=== PATIENT | male | born 1945 | race Caucasian/White ===

== ENCOUNTER 2016-12-06 12:42 | Emergency (ER) | payer MEDICARE, OTHER ==
[~2016-12-06] VITALS: Ht 185.4 cm; Wt 113.0 kg
[2016-12-06] MEDS ORDERED: SODIUM CHLORIDE FLUSH 10 ML SYR IV PRN (12:45)
[2016-12-06] MEDS ORDERED: SODIUM CHLORIDE FLUSH 3 ML SYR IV ONE (12:45)
[2016-12-06] MEDS ORDERED: HYDROmorphone 1 MG/ML (DILAUDID) SYRINGE IV ONE (13:15)
[2016-12-06 13:26] LABS: MEAN CORPUSCULAR VOLUME 96 FL (80-100); PLATELET COUNT 228 10^3uL (150-450); WHITE BLOOD COUNT 11.41 10^3uL (4.0-11.0)
[2016-12-06 13:32] LABS: MEAN CORPUSCULAR HEMOGLOBIN 34.3 PG (26.0-34.0); MEAN CORPUSCULAR HGB CONC 35.6 g/dL (31.0-37.0)
[2016-12-06 13:33] LABS: BAND NEUTROPHILS % 11 % (0-6); EOSINOPHILS % 2 % (0-4); MONOCYTES # 0.2 #; MONOCYTES % 2 % (3-11); RBC MORPH NORMAL (NORMAL); SEGMENTED NEUTROPHILS % 76 % (51-67); TOTAL CELLS COUNTED 100
[2016-12-06 13:34] LABS: CREATINE KINASE 121 U/L (55-170)
[2016-12-06 13:38] LABS: ACETONE SERUM Negative (Negative)
[2016-12-06 13:39] LABS: ALBUMIN 5.2 g/dL (3.4-5.0); ALKALINE PHOSPHATASE 56 U/L (38-126); AMYLASE* 54 U/L (25-115); ANION GAP 22.1 MEQ/L (3-15); BUN/CREATININE RATIO 12 (10-20); CALCULATED IONIZED CALCIUM 3.9 mg/dL (3.8-4.6); LIPASE* 118 U/L (23-300); TOTAL PROTEIN 8.6 g/dL (6.4-8.5)
[2016-12-06 15:43] LABS: ANION GAP 20.4 MEQ/L (3-15)
[2016-12-06] MEDS ORDERED: DIPHENOXYLATE/ATROPINE 2.5MG/0.025MG (LOMOTIL) TAB PO ONE (16:00)
[2016-12-06] MEDS ORDERED: DEXTROSE 50% 25 GM/50 ML SYRINGE IV ONE (16:45)
[2016-12-06 17:38] LABS: CLARITY,URINE Cloudy; GLUCOSE, URINE (UA) Negative (Negative); LEUKOCYTE ESTERASE ,URINE Negative (Negative); UROBILINOGEN,URINE 0.2 mg/dL (0.2-1.0)
[2016-12-06 17:39] LABS: BILIRUBIN,URINE 2+ (Negative); COLOR,URINE Dark Yellow
[2016-12-06 17:46] LABS: AMORPHOUS SEDIMENT,UR 1+ /HPF; AMPHETAMINE SCREEN, URINE Negative (Negative); CANNABINOID SCREEN, URINE Negative (Negative); METHAMPHETAMINE SCREEN URINE S NEGATIVE (NEGATIVE); OPIATE SCREEN URINE Positive (Negative); PROPOXYPHENE STAT NEGATIVE (NEGATIVE); URINE CENTRIFUGED VOLUME 10 mL
[2016-12-06 18:31] VITALS: BP 77/50
== END 2016-12-06 17:55 | disposition home or self-care (01) ==
LOC: EDUNIT# 12:42 → ED 12:43
DX: E87.6 Hypokalemia (principal); E86.0 Dehydration; N28.9 Disorder of kidney and ureter, unspecified; N17.9 Acute kidney failure, unspecified; R79.89 Other specified abnormal findings of blood chemistry; E03.9 Hypothyroidism, unspecified
CPT/HCPCS: 36415; 80048; 80053; 81003; 81015; 82009; 82150; 82550; 82553; 83690; 84443; 84484; 85025; 86140; 96361; 96374; 99284; A9270; G0478; G0480; J1170; J7030; 80307; 80320

== ENCOUNTER → 2016-12-06 | Outpatient (CLI) | payer MEDICARE, OTHER | LOC: EMS 12:20 | PROVIDERS: ATTEND Family Medicine | DX: R11.2 Nausea with vomiting, unspecified (principal); R19.7 Diarrhea, unspecified ==

== ENCOUNTER → 2017-01-06 | Outpatient (CLI) | payer MEDICARE, OTHER ==
[~2017-01-06] MED LIST: AC325T PO; ACET-789 PO; ATOR20TA PO; FURO-124 PO; HYDR-3881; IBUP200C11; LISI-595 PO; LISI5TAB14 PO; METF500T4 PO; MORP15TA; NIAC1000 PO; ONDA4TAB8 PO; OXYC-272 PO; TRM50T PO
--- NOTE | 2017-01-06 13:34 | Diagnostic Imaging Report ---
PROCEDURE: CT sinuses without contrast TECHNIQUE: Multiple contiguous axial images were obtained through the sinuses without the use of intravenous contrast. Coronal and sagittal reformations were then performed. INDICATION: Chronic sinus pressure. FINDINGS: The paranasal sinuses show diffuse polyps and mucosal thickening scattered throughout the paranasal sinuses. Right and left maxillary antrum soft tissue thickness measures 7 mm. The ostiomeatal complexes appear normal and are widely patent. The ethmoid sinuses show some opacification of the anterior ethmoid air cells on the right. There is a polyp in the left sphenoid sinus air cell measuring 7 mm. There is moderate mucosal thickening within the inferior aspect of the frontal sinuses bilaterally causing some obstruction of the meatus. Nasal septum shows mild deviation to the left. There is mild bro bullosa of the right middle nasal turbinate with mild lamellar bullosa on the left. Inferior nasal turbinates appear normal. There are no destructive bony changes. IMPRESSION: 1. Mucosal thickening with multiple polyp scattered throughout the paranasal sinuses. 2. Mild deviation of the nasal septum to the left. There is noted mild bro bullosa of the right middle nasal turbinate. 3. No destructive bony lesions noted. Dictated by: Dictated on workstation # [id number]
== END ==
LOC: RAD 12:50
PROVIDERS: ATTEND Family Medicine
DX: J34.89 Other specified disorders of nose and nasal sinuses (principal)
CPT/HCPCS: 70486

== ENCOUNTER 2017-02-24 07:28 | Day surgery (SDC) | payer MEDICARE, OTHER ==
[~2017-02-24 07:28] MED LIST changes: +LACTATED RINGERS 1,000 ML IV SCH; +SODIUM CHLORIDE FLUSH 3 ML SYR IV PRN
[2017-02-24 07:36] VITALS: BP 139/85
[2017-02-24] MEDS ORDERED: MIDAZOLAM 2 MG/2 ML (VERSED) VIAL ONE (07:45)
[2017-02-24 08:48] VITALS: BP 145/89
[2017-02-24 09:01] VITALS: BP 141/94
--- NOTE | 2017-02-25 10:24 | OPERATIVE REPORT ---
DATE OF OPERATION: 02/24/2017 PRE-OPERATIVE DIAGNOSIS: Colon screening with personal and family history of colon polyps. POST-OPERATIVE DIAGNOSIS: Rectal polyp, sigmoid diverticulae. OPERATIVE PROCEDURE: Total colonoscopy with forceps polypectomy. SURGEON: Pawel Denny MD ANESTHESIA: IV conscious sedation, Monitored Anesthesia Services. POSITION: Left lateral decubitus. ESTIMATED BLOOD LOSS: Minimal FINDINGS: Few scattered wide mouth sigmoid diverticulae, tiny sessile polyp midrectum. The remainder of colon mucosa was normal. Prep was good. OPERATIVE NOTE: Following satisfactory induction of analgesia a digital rectal exam was performed. This revealed normal sphincter tone and a slightly enlarged, smooth prostate. No rectal masses palpable. The colonoscope was introduced per rectum and advanced under CO2 insufflation and direct vision to the cecum. The cecum was identified by convergence of the teniae, ileocecal valve and palpation/translumination of the right lower quadrant. The above findings were noted. [employer] photographs were obtained. The above areas were again carefully examined as the scope was slowly withdrawn. The polyp was removed using cold biopsy forceps and submitted to pathology. Good hemostasis was noted at the polypectomy site . Retroflexed view of the rectum was normal. Excess insufflated CO2 was evacuated and the scope removed. Patient tolerated procedure well and transferred to recovery in stable condition. RECOMMENDATIONS: Pending biopsy results patient will need to have repeat screening colonoscopy in 5 years, due to his prior history.
== END 2017-02-24 09:07 | disposition home or self-care (01) ==
LOC: ASC 07:28
PROVIDERS: ATTEND Surgery
DX: Z12.11 Encounter for screening for malignant neoplasm of colon (principal); K62.1 Rectal polyp; Z86.010 Personal history of colon polyps; Z83.71 Family history of colonic polyps; K57.30 Diverticulosis of large intestine without perforation or abscess without bleeding; I10 Essential (primary) hypertension; E11.9 Type 2 diabetes mellitus without complications; Z79.84 Long term (current) use of oral hypoglycemic drugs; Z87.891 Personal history of nicotine dependence
CPT/HCPCS: 45380; 88305; J2250; J7120